=== PATIENT | male | born 1960 | race Caucasian/White ===

== ENCOUNTER 2025-04-28 08:25 | Outpatient (RCR) | payer MEDICARE, SELFPAY | END 2025-05-11 16:26 | disposition home or self-care (01) | LOC: HO.WCC 08:25 | PROVIDERS: PCP Family Medicine; Visit Provider Surgery Surgical Oncology | DX: I70.233 Atherosclerosis of native arteries of right leg with ulceration of ankle (principal); L97.312 Non-pressure chronic ulcer of right ankle with fat layer exposed; L97.812 Non-pressure chronic ulcer of other part of right lower leg with fat layer exposed; A49.01 Methicillin susceptible Staphylococcus aureus infection, unspecified site; I10 Essential (primary) hypertension; F17.290 Nicotine dependence, other tobacco product, uncomplicated | CPT/HCPCS: 11042; 87070; 87073; 87077; 87186; 87205; 97597; 99203 ==